=== PATIENT | female | born 1995 | race Two or more races ===

== ENCOUNTER → 2018-07-12 | Outpatient (CLI) | payer OTHER ==
--- NOTE | 2018-07-13 12:44 | RADIOLOGY REPORT (SQ) ---
EXAM DESCRIPTION: MRI HEAD COMBO COMPLETED DATE/TIME: 07/12/2018 7:52 pm REASON FOR STUDY: H57.89 OTHER SPECIFIED DISORDERS OF EYE AND ADNEXA H57.89 OTHER SPECIFIED DISORDE RS OF EYE AND ADNEXA COMPARISON: None. TECHNIQUE: Multiplanar imaging includes noncontrasted T1, T2, FLAIR, diffusion with ADC map and post gadolinium contrast T1 sequences. Additional thin section axial and coronal fat-sat T2, precontrast T1 and fat-sat postcontrast T1 axia l and coronal images through the orbits were obtained. Images stored on PACS. CONTRAST TYPE AND DOSE: 10 mL Dotarem. RENAL FUNCTION: Not indicated. ACR Type II contrast agent associated with few, if any, unconfounded cases of NSF LIMITATIONS: None. FINDINGS: ANATOMY: No developmental anomalies. Normal vascular flow voids. Pituitary fossa normal. CSF SPACES: Normal in size and contour. No hemorrhage. CEREBRUM: Sulci and gyri normal in size and contour. Normal white matter signal on FLAIR imaging. No evidence of hemorrhage, mass, or extraaxial fluid collection. No abnormal enhancement post contrast. POSTERIOR FOSSA: No signal alteration. No hemorrhage. No edema, masses, or mass effect. Internal ray tory canals, cerebellopontine angles, mastoids normal. No enhancing lesions. No abnormal enhancement post contrast. DIFFUSION IMAGING: Negative for acute or subacute infarction. ORBITS: An 8.2 x 2 mm lipoma is suspected, along the right lateral orbit between the lacrimal gland a nd the superficial aspect of the lateral rectus muscle attachment to the globe. Globes normal. Opti c nerves, intra and extraconal fat, extraocular muscles are fall otherwise unremarkable. Lacrimal ap paratus bilaterally unremarkable PARANASAL SINUSES: No fluid levels. Mucosa normal. OTHER: No other significant finding. IMPRESSION: NORMAL MRI OF THE BRAIN WITHOUT AND WITH INTRAVENOUS GADOLINIUM CONTRAST. Tiny lipoma in the tissue planes between the right lacrimal gland and lateral rectus muscle attachmen t to the right globe EVIDENCE OF ACUTE STROKE: NO. COMMENT: Report discussed with Dr. Roque TECHNICAL DOCUMENTATION: JOB ID: [id number] [employer]- All Rights Reserved Reading location - IP/workstation name: [email or web address]-
== END ==
LOC: RAD 17:58
PROVIDERS: ATTEND Ophthalmology
DX: H57.89 Other specified disorders of eye and adnexa (principal)
CPT/HCPCS: 70553; A9576